=== PATIENT | male | born 1980 | race African-American/Black ===

== ENCOUNTER 2024-08-10 09:02 | Emergency (ER) | payer SELFPAY | END 2024-08-10 09:51 | disposition home or self-care (01) | LOC: ERS 09:02 | DX: K04.7 Periapical abscess without sinus (principal); F17.210 Nicotine dependence, cigarettes, uncomplicated | CPT/HCPCS: 99282 ==

== ENCOUNTER 2024-09-09 01:09 | Emergency (ER) | payer SELFPAY ==
[2024-09-09] MEDS ORDERED: Lidocaine 1% w/Epinephrine 1:100K 20 ML VIAL ONE (01:21)
[2024-09-09] MEDS ORDERED: Boostrix 0.5 ML (Tdap) VIAL (>/=7 yrs of age) ONE (01:22)
[2024-09-09] MEDS ORDERED: Bacitracin 1 PK ONE (03:45)
== END 2024-09-09 04:26 | disposition home or self-care (01) ==
LOC: ERS 01:09
DX: S01.112A Laceration without foreign body of left eyelid and periocular area, initial encounter (principal); S09.90XA Unspecified injury of head, initial encounter; Z23 Encounter for immunization; F17.210 Nicotine dependence, cigarettes, uncomplicated; Y04.2XXA Assault by strike against or bumped into by another person, initial encounter
CPT/HCPCS: 12054; 70450; 70486; 90471; 90715

== ENCOUNTER 2024-09-15 08:36 | Emergency (ER) | payer SELFPAY | END 2024-09-15 09:59 | disposition home or self-care (01) | LOC: ERS 08:36 | DX: S01.112D Laceration without foreign body of left eyelid and periocular area, subsequent encounter (principal); F17.210 Nicotine dependence, cigarettes, uncomplicated; W22.8XXD Striking against or struck by other objects, subsequent encounter; Y92.59 Other trade areas as the place of occurrence of the external cause ==